=== PATIENT | female | born 1940 | race Caucasian/White ===

== ENCOUNTER 2017-05-06 08:15 | Day surgery (SDC) | payer MEDICARE ==
--- NOTE | 2017-05-05 12:23 | RADIOLOGY REPORT (SQ) ---
EXAM DESCRIPTION: CHEST PA/LATERAL COMPLETED DATE/TIME: 05/05/2017 11:57 am REASON FOR STUDY: PRE OP COMPARISON: None. NUMBER OF VIEWS: Two view. TECHNIQUE: Frontal and lateral radiographic views of the chest acquired. LIMITATIONS: None. FINDINGS: LUNGS AND PLEURA: No opacities, masses or pneumothorax. No pleural effusion. MEDIASTINUM AND HILAR STRUCTURES: No masses or contour abnormalities. HEART AND VASCULATURE: Heart normal size. No evidence for failure. BONY STRUCTURES: No acute findings. HARDWARE: None. OTHER: No other significant finding. IMPRESSION: NO SIGNIFICANT RADIOGRAPHIC FINDING IN THE CHEST. TECHNICAL DOCUMENTATION: JOB ID: [id number] [employer]- All Rights Reserved
[2017-05-05 12:40] LABS: APPEARANCE,URINE SLIGHTLY-CLOUDY; BILIRUBIN,URINE NEGATIVE (NEGATIVE); COLOR,URINE YELLOW; GLUCOSE, URINE NEGATIVE (NEGATIVE); KETONES,URINE TRACE mg/dL (NEGATIVE); LEUKOCYTE ESTERASE,URINE NEGATIVE (NEGATIVE); NITRITE,URINE NEGATIVE (NEGATIVE); PROTEIN,URINE NEGATIVE (NEGATIVE); URINE SPECIFIC GRAVITY 1.019; UROBILINOGEN,URINE NEGATIVE mg/dL (<2.0)
[2017-05-05 12:46] LABS: HEMATOCRIT 41.9 % (36.0-47.0); HEMOGLOBIN 14.1 g/dL (12.0-15.5); MEAN CORPUSCULAR HEMOGLOBIN 30.1 pg (27.0-33.4); MEAN CORPUSCULAR HGB CONC 33.7 g/dL (32.0-36.0); MEAN CORPUSCULAR VOLUME 89 fl (80-97); PLATELET COUNT 265 10^3/uL (150-450); RED BLOOD COUNT 4.69 10^6/uL (3.72-5.28); RED CELL DISTRIBUTION WIDTH 12.9 % (11.5-14.0); WHITE BLOOD COUNT 6.1 10^3/uL (4.0-10.5)
[~2017-05-06 08:15] MED LIST: LACTATED RINGERS 1000 ML IV PRN
[2017-05-06] MEDS ORDERED: LIDOCAINE 2%/EPINEPHRINE INJ 20 ML VIAL ONE (09:14)
[2017-05-06] MEDS ORDERED: MIDAZOLAM 2 MG/2 ML INJ ONE (10:02)
[2017-05-06] MEDS ORDERED: FENTANYL CITRATE INJ/PF 100 MCG/2 ML AMPUL ONE (10:02)
[2017-05-06] MEDS ORDERED: ACETAMINOPHEN 100 ML IV ONE (10:02)
[2017-05-06] MEDS ORDERED: PROPOFOL INJ 200 MG/20 ML VIAL IV ONE (10:03)
[2017-05-06] MEDS ORDERED: DEXAMETHASONE SOD PHOSPHATE INJ 4 MG/1 ML VIAL ONE (10:14)
[2017-05-06] MEDS ORDERED: SUCCINYLCHOLINE CHLORIDE INJ 200 MG/10 ML VIAL ONE (10:14)
[2017-05-06] MEDS ORDERED: PHENYLEPHRINE HCL INJ/PF 10 MG/1 ML SDV ONE (10:14)
[2017-05-06] MEDS ORDERED: GLYCOPYRROLATE INJ 0.4 MG/2 ML VIAL ONE (10:14)
[2017-05-06] MEDS ORDERED: LIDOCAINE 2% INJ-PF (20 MG/ML) 2 ML AMPUL ONE (10:14)
[2017-05-06] MEDS ORDERED: ONDANSETRON HCL INJ/PF 4 MG/2 ML SDV ONE (10:14)
--- NOTE | 2017-05-06 10:24 | EKG REPORT ---
SEVERITY:- ABNORMAL ECG - SINUS RHYTHM CONSIDER LEFT VENTRICULAR HYPERTROPHY : Confirmed by: Adrianna Cunha 06-May-2017 10:23:20
[2017-05-06] MEDS ORDERED: LIDOCAINE 2%/EPINEPHRINE INJ 20 ML VIAL INJ ONE (10:33)
[2017-05-06] MEDS ORDERED: PROMETHAZINE HCL INJ 25 MG/1 ML VIAL IV PRN (10:45)
[2017-05-06] MEDS ORDERED: DIPHENHYDRAMINE HCL 50 MG/ML VIAL IV PRN (10:45)
[2017-05-06] MEDS ORDERED: FENTANYL CITRATE INJ/PF 100 MCG/2 ML AMPUL IV PRN ×3 (10:45)
[2017-05-06] MEDS ORDERED: EPHEDRINE SULFATE INJ 50 MG/1 ML AMPULE ONE (11:10)
[2017-05-06] MEDS ORDERED: HYDROMORPHONE HCL INJ/PF 2 MG/ML AMPULE IV PRN (11:36)
[2017-05-06] MEDS ORDERED: ONDANSETRON HCL INJ/PF 4 MG/2 ML SDV IV PRN (11:37)
[2017-05-06] MEDS ORDERED: IBUPROFEN 800 MG TABLET PO PRN (11:38)
[2017-05-06] MEDS ORDERED: OXYCODONE-ACETAMINOPHEN 5-325 MG TABLET PO PRN ×2 (11:38)
[2017-05-06 13:21] VITALS: BP 158/86
--- NOTE | 2017-05-14 04:02 | Operative Report ---
Operative Report DATE OF SURGERY: 05/06/17 PREOPERATIVE DIAGNOSIS: Thickened endometrium POSTOPERATIVE DIAGNOSIS: SE, Arcuate uterus, Endocervical polyp OPERATION: EUA, Paracervical Block, Operative H/S, D&C, Removal of cervical polyp SURGEON: LIAM MOHAMUD ANESTHESIA: GA TISSUE REMOVED OR ALTERED: endocervical polyp with currettings, EMC COMPLICATIONS: None ESTIMATED BLOOD LOSS: less than 5ml INTRAOPERATIVE FINDINGS: small AV uterus, ovaries not palpable, Apparent uterine septum with fallopian tube ostea noted bilaterally, endocervical polyp noted, no definitive endometrial polyp noted. PROCEDURE: Anesthesia: [Delfino Alberto MD, Annette Gunn CRNA] EBL: less than 5 ml IVF: [600ml] UOP: 50ml Specimens: [ECC, EMC] Indications: [76yo postmenopausal female sent from [facility] due to thickened endometrium noted on Ultrasound done incidentally for pelvic pain. Endometrial stripe on US is 1.1cm. Endometrial biopsy done in the office with possible polyp noted on endometrial biopsy. The risks, benefits, alternatives were reviewed and she desires to proceed with planned procedure.] Procedure: The patient was taken to the Operating Room where general anesthesia was obtained without difficulty. She was prepped and draped in the normal sterile fashion in the dorsal lithotomy position. Exam under anesthesia was performed and noted above. A speculum was placed in the vagina. The anterior cervix was grasped with a single-tooth tenaculum and the uterus sounded to 7 cm after paracervical block was performed with 8 mL of 2% lidocaine with epinephrine. Sequential dilators were then used to dilate the cervix to accommodate the Myosure hysteroscope. The hysteroscope was then gently advanced into the uterine cavity in the usual fashion with visualization of the endometrial cavity with apparent uterine septum noted but no definitive endometrial polyp noted. The Myosure device was not needed as there was no definitive polyp noted except for in the endocervical canal. The hysteroscope was then removed at this time. At this time gentle curettage was performed until a gritty texture was noted in both the endocervix and then endometrial cavity. All instruments were removed from the patient's cervix and vagina. Silver nitrate was applied to the tenaculum site for hemostasis. Sponge lap needle and instrument counts are correct 2. No perioperative antibiotics were given as is not indicated for this procedure. The patient tolerated the procedure well and was taken to the recovery area awake and in stable condition.
== END 2017-05-06 13:15 | disposition home or self-care (01) ==
LOC: OROUT 08:15
PROVIDERS: ATTEND Student in an Organized Health Care Education/Training Program
PROC: 0UDB8ZX Extraction of Endometrium, Via Natural or Artificial Opening Endoscopic, Diagnostic (ICD-10-PCS; principal; 2017-05-06 10:15)
DX: N84.0 Polyp of corpus uteri (principal); J45.909 Unspecified asthma, uncomplicated; E78.00 Pure hypercholesterolemia, unspecified; I10 Essential (primary) hypertension; Z87.891 Personal history of nicotine dependence; Z79.51 Long term (current) use of inhaled steroids
CPT/HCPCS: 93005; 36415; 85027; 81001; 88305 ×2; 71046; 93010; 58558; J2250; J1100; J3490 ×3; J3010; J1170; J2370; J0330; J2405; J2704; J0131; 952

== ENCOUNTER → 2017-07-30 | Outpatient (CLI) | payer MEDICARE ==
--- NOTE | 2017-07-30 19:55 | XCELERA REPORT ---
[address] [address] Transthoracic Echocardiogram Report Name: KRZYSZTOF MOODY Age: 77 yrs Gender: Female : 1940 Patient Status: Outpatient Patient Location: [facility] Study Date: 07/30/2017 10:08 AM Height: 65.5 in Weight: 195 lb BSA: 2.0 m2 Reason For Study: EDEMA Ordering Physician: JEREMY CAZARES Performed By: Alesha Schafer Interpretation Summary Min pericardial effusiion Aortic root dilated to 41 mm. Mild AV sclerosis with 3 cusps and no no AR' Mild mitral annular calcification, no MVP, no MS, trace MR. no LA enlargement. Hypokinetic IVS and inferoseptal wall, perhaps lat wall as well, no LVH, LVEF 60-65%, with stage I LVDD, no LV enlargement. RH is not enlarged, mild TR with mild pulm hypertension [id number] Hg. MMode/2D Measurements & Calculations RVDd: 2.8 cm LVIDd: 5.0 cm FS: 39.8 % Ao root diam: 4.0 cm IVSd: 0.86 cm LVIDs: 3.0 cm EDV(Teich): 117.2 ml LVPWd: 0.88 cm ESV(Teich): 34.9 ml Ao root area: 12.3 cm2 EF(Teich): 70.2 % LVOT diam: 2.3 cm LVOT area: 4.0 cm2 Doppler Measurements & Calculations MV E max linda: MV dec slope: Ao V2 max: LV V1 max P.2 cm/sec 389.7 cm/sec2 100.7 cm/sec 2.8 mmHg MV A max linda: MV dec time: Ao max PG: LV V1 max: 110.2 cm/sec 0.20 sec 4.1 mmHg 84.3 cm/sec MV E/A: 0.69 MARGIE(V,D): 3.3 cm2 PA V2 max: TR max linda: 85.2 cm/sec 255.8 cm/sec PA max P.9 mmHg TR max P.2 mmHg : JEREMY CAZARES Andre
== END ==
LOC: SP 10:55
PROVIDERS: ATTEND Family Medicine
DX: I27.20 Pulmonary hypertension, unspecified (principal); I07.1 Rheumatic tricuspid insufficiency; R22.43 Localized swelling, mass and lump, lower limb, bilateral
CPT/HCPCS: 93306

== ENCOUNTER → 2017-10-13 | Outpatient (CLI) | payer MEDICARE ==
--- NOTE | 2017-10-15 19:50 | WOMENS IMAGING REPORT ---
EXAM DESCRIPTION: 3D SCREENING MAMMO BILAT COMPLETED DATE/TIME: 10/13/2017 10:33 am REASON FOR STUDY: ROUTINE SCREENING;Z12.31 Z12.31 ENCNTR SCREEN MAMMOGRAM FOR MALIGNANT NEOPLASM OF MARTHA COMPARISON: Multiple since 2008 TECHNIQUE: Standard craniocaudal and mediolateral oblique views of each breast recorded using digita l acquisition and breast tomosynthesis. LIMITATIONS: None. FINDINGS: No masses, calcifications or architectural distortion. No areas of suspicion. Read with the assistance of CAD. .[facility] - R2 C[employer]ova Version 1.3 .[facility] - R2 Cenova Version 1.3 .[facility] - R2 Cenova Version 2.4 .[facility] [place] R2 Cenova Version 2.4 .[facility] - R2 [employer] Instructor Version 9.2 IMPRESSION: NORMAL MAMMOGRAM. BIRADS 1. BREAST DENSITY: b. There are scattered areas of fibroglandular density. BIRAD: 1 NEGATIVE RECOMMENDATION: ROUTINE SCREENING Please continue yearly bilateral screening tomosynthesis in October 2018 COMMENT: The patient has been notified of the results by letter per SA requirements. Additional no tification policies are in place for contacting patient with suspicious or incomplete findings. Quality ID #[id number]: The [employer] recommends an annual screening mammogram for women aged 40 years or over. This facility utilizes a reminder system to ensure that all patients receive reminder letters, and/or direct phone calls for appointments. This includes reminders for routine scr eening mammograms, diagnostic mammograms, or other Breast Imaging Interventions when appropriate. Th is patient will be placed in the appropriate reminder system. The [employer] (ACR) has developed recommendations for screening MRI of the breast s in certain patient populations, to be used in conjunction with mammography. Breast MRI surveillanc e may be appropriate for women with more than 20% lifetime risk of developing breast cancer as deter mined by genetic testing, significant family history of the disease, or history of mantle radiation f or Hodgkins Disease. ACR Practice Guidelines 2008. DBT Technology DBT is a type of tomographic mammography. With conventional mammography, overlapping breast tissue ma y make lesions difficult to detect, even with good compression. DBT uses an x-ray tube that rotates a round the breast, taking images at different angles. These images are then combined to create thin sl ices of the breast that the radiologist can view as a 3D reconstruction. The [employer] unit can perform full-field digital mammograms (2D imaging); or DBT (3D imaging); or both, in a combination mode that quickly performs both the mammogram and the tomosynthesis scan while the breast is still compressed. PQRS 6045F: Fluoroscopic imaging is not utilized for breast tomosynthesis. TECHNICAL DOCUMENTATION: FINDING NUMBER: (1) ASSESSMENT: (1) JOB ID: [id number] [employer]- All Rights Reserved Reading location - IP/workstation name: [facility]
== END ==
LOC: WI 10:15
PROVIDERS: ATTEND Student in an Organized Health Care Education/Training Program
DX: Z12.31 Encounter for screening mammogram for malignant neoplasm of breast (principal)
CPT/HCPCS: 77063; 77067